=== PATIENT | male | born 1980 | race Caucasian/White ===

== ENCOUNTER 2019-05-13 05:10 | Emergency (ER) | payer OTHER ==
--- NOTE | 2019-05-13 08:55 | ER ---
REASON FOR EMERGENCY ROOM VISIT: Sore throat and cough. HISTORY: This 38-year-old man comes in with a 3-day history of upper respiratory symptoms, mainly consisting of a sore throat and nonproductive cough. He has not had any fever and possibly had some chills. Two days ago, his sore throat was the most bothersome symptom and kept him up most of the night last night. Therefore, he came to the emergency room to be checked out. He has not had any GI symptoms and denies myalgias. PAST MEDICAL HISTORY: Hypertension. MEDICATIONS: Lisinopril, hydrochlorothiazide, and clonidine. ALLERGIES: NONE TO MEDICATIONS. REVIEW OF SYSTEMS: Pertinent positives and negatives as listed in the HPI. PHYSICAL EXAMINATION: GENERAL: Reveals a healthy-appearing young man, in no acute distress. HEENT: No conjunctivitis is noted. TMs are normal. Oropharynx, mild erythema. No exudates are noted. NECK: Supple. No adenopathy. CHEST: Clear to auscultation with no wheezes, rhonchi, or rales and good air exchange bilaterally. CARDIAC: Regular rate without murmur. ABDOMEN: Soft, nontender. No hepatosplenomegaly. SKIN: No rashes. LABORATORY DATA: His strep screen was negative. A chest x-ray shows no active pulmonary disease. IMPRESSION: Upper respiratory infection. PLAN: The usual supportive measures were recommended to him. He understands that why antibiotics are not indicated at this juncture. Should his strep screen end up being with a positive strep culture, we will contact him. He understands and all questions were answered. ABE /[id number]
--- NOTE | 2019-05-13 15:04 | CR ---
CLINICAL DATA: Cough, chills. PA AND LATERAL CHEST, 13 MAY 2019: The heart size is normal. The lungs are clear. No pneumothorax . No pleural effusions. No evidence of acute intrathoracic disease. Job: [id number] MTDD
== END 2019-05-13 06:14 | disposition home or self-care (01) ==
LOC: LB.ED 05:10
DX: J06.9 Acute upper respiratory infection, unspecified (principal); I10 Essential (primary) hypertension; Z79.899 Other long term (current) drug therapy
CPT/HCPCS: 71046; 87430; 99283-25

== ENCOUNTER 2021-05-03 10:15 | Emergency (ER) | payer OTHER ==
[2021-05-03] MEDS: Diphtheria,Pertussis(Acell),Tetanus Vaccine 0.5 ML SDV IM ONE (10:41)
--- NOTE | 2021-05-03 10:43 | EDM.PDOC ---
ED HPI GENERAL MEDICAL PROBLEM - General Chief Complaint: Laceration Stated Complaint: FALL AT HOME Time Seen by Provider: 05/03/21 10:30 Source of Information: Reports: Patient, RN Notes Reviewed History Limitations: Reports: No Limitations - History of Present Illness INITIAL COMMENTS - FREE TEXT/NARRATIVE: This patient presents to the emergency department for evaluation of a laceration. He states he fell out of bed and hit his night stand last night. He did not come in at that time because he did not think it was necessary. His informed him he needed to be seen today. He states he had no loss of consciousness with the incident. He does have a wound to the forehead. He denies other injuries or concerns. - Related Data Allergies Allergy/AdvReac Type Severity Reaction Status Date / Time No Known Allergies Allergy Verified 05/13/19 05:24 Home Meds: Home Meds Lisinopril/Hydrochlorothiazide [Lisinopril-Hctz 20-25 mg Tab] 1 each PO DAILY 05/13/19 [History] cloNIDine [Catapres] 0.1 mg PO Q12HR 05/13/19 [History] Past Medical History Cardiovascular History: Reports: Hypertension Social & Family History - Family History Family Medical History: No Pertinent Family History - Caffeine Use Caffeine Use: Reports: Coffee ED ROS GENERAL - Review of Systems Review Of Systems: Comprehensive ROS is negative, except as noted in HPI. ED EXAM, SKIN/RASH Exam: See Below Exam Limited By: No Limitations General Appearance: Alert, No Apparent Distress Eye Exam: Bilateral Eye: PERRL Ears: Normal External Exam Nose: Normal Inspection Head: Normocephalic, Other (2 cm laceration to right side forehead) Neck: Normal Inspection, Supple, Non-Tender, Full Range of Motion Respiratory/Chest: No Respiratory Distress, No Accessory Muscle Use Neurological: Alert, Oriented Psychiatric: Normal Affect, Normal Mood ED SKIN PROCEDURES - Laceration/Wound Repair Right Anterior Forehead Appearance: Superficial Distal NVT: Neuro & Vascular Intact Saline Irrigation (cc's): 100 Exploration/Debridement/Repair: Wound Explored Closed with: Other (None; center of wound avulsed with missing tissue.) Lac/Wound length In cm: 2 (Missing tissue center third; unable to pull wound together.) Suture Size: 2-0 Sterile Dressing Applied: Nurse Tetanus Status Addressed: Yes Complications: No Course - Orders/Labs/Meds Orders: Active Orders 24 hr Category Date Time Status Diphth,Pertuss(Acell),Tet Vac [Boostrix] Med 05/03/21 10:37 Once 0.5 ml IM .ONCE ONE - Re-Assessments/Exams Free Text/Narrative Re-Assessment/Exam: This patient presents to the emergency department with a laceration to his forehead. The wound was carefully evaluated and explored and was not closed due to missing tissue.There is no evidence of muscular, tendon, or bony damage with this injury. Possible complications including infection and scarring were reviewed with the patient. He will follow-up with his primary care provider. Tetanus status was addressed and he was stable at the time of discharge. 05/03/21 10:46 Departure - Departure Time of Disposition: 10:45 Disposition: Home, Self-Care 01 Condition: Good Clinical Impression: Laceration - Discharge Information *PRESCRIPTION DRUG MONITORING PROGRAM REVIEWED*: Not Applicable *COPY OF PRESCRIPTION DRUG MONITORING REPORT IN PATIENT FARSHAD: Not Applicable Instructions: Nonsutured Laceration Care Referrals: Jarod Torres MD [Primary Care Provider] - Forms: ED Department Discharge - My Orders Last 24 Hours: My Active Orders 05/03/21 10:37 Diphth,Pertuss(Acell),Tet Vac [Boostrix] 0.5 ml IM .ONCE ONE - Assessment/Plan Last 24 Hours: My Active Orders 05/03/21 10:37 Diphth,Pertuss(Acell),Tet Vac [Boostrix] 0.5 ml IM .ONCE ONE
== END 2021-05-03 10:44 | disposition home or self-care (01) ==
LOC: LB.ED 10:15
DX: S01.81XA Laceration without foreign body of other part of head, initial encounter (principal); I10 Essential (primary) hypertension; Z23 Encounter for immunization; W06.XXXA Fall from bed, initial encounter
CPT/HCPCS: 12011; 90471; 90715; 99282-25